=== PATIENT | female | born 1980 | race Caucasian/White ===

== ENCOUNTER 2022-02-10 16:19 | Emergency (ER) | payer MEDICAID ==
[~2022-02-10] VITALS: Ht 161.5 cm; Wt 84.0 kg
[2022-02-10 16:32] VITALS: BP 135/89
--- NOTE | 2022-02-10 16:40 | NUR ---
[employer]: DELTA [id number]
--- NOTE | 2022-02-10 16:43 | NUR ---
PT AMB TO BED 6
[2022-02-10 17:01] LABS: BASOPHILS # (AUTO) 0.1 K/uL (0.00-0.22); EOSINOPHILS # (AUTO) 0.1 K/uL (0-0.4); HEMATOCRIT 39.5 % (36-48); HEMOGLOBIN 12.7 g/dL (12.0-16.0); LYMPHOCYTES # (AUTO) 2.2 K/uL (2.5-16.5); LYMPHOCYTES % (AUTO) 30.4 % (20.5-51.1); MEAN CORPUSCULAR HEMOGLOBIN 26 pg (27-31); MEAN CORPUSCULAR HGB CONC 32 g/dL (33-37); MEAN CORPUSCULAR VOLUME 79.9 fL (80-94); MONOCYTES # (AUTO) 0.6 K/uL (0.8-1.0); MONOCYTES % (AUTO) 7.7 % (1.7-9.3); NEUTROPHILS # (AUTO) 4.3 K/uL (1.8-7.7); NEUTROPHILS % (AUTO) 59.9 % (42.2-75.2); PLATELET COUNT (AUTO) 255 K/uL (140-450); RED BLOOD CELL COUNT(AUTO) 4.94 MIL/uL (4.20-5.40); RED CELL DISTRIBUTION WIDTH 15.3 % (11.6-13.7); WHITE BLOOD COUNT (AUTO) 7.3 K/uL (4.8-10.8)
--- NOTE | 2022-02-10 17:10 | NUR ---
41YO FEMALE PT C/O INTTERMITTENT DULL CHEST PAIN X2 WEEKS. PT STATES PAIN WHEN ANXIOUS. STATES ON GOING SYMPTOMS [id number]. EXPRESSED RECENT INCREASE DUE TO SICK FAMILY MEMBERS. DENIES N/V/D, FEVER , CHILLS OR SOB. PT AAOX4, SPEAKING IN CLEAR FULL SENTENCES. RESPIRATIONS EVEN AND UNLABORED HX:DENIES NKA
--- NOTE | 2022-02-10 17:15 | NUR ---
XRAY AT BEDSIDE
[2022-02-10] MEDS ORDERED: LORazepam 1 MG TAB PO ONE (17:20)
[2022-02-10 17:21] LABS: ALBUMIN 3.9 g/dL (3.4-5.0); CARBON DIOXIDE 28.3 mmol/L (21-32); CREATININE 0.8 mg/dL (0.6-1.3); POTASSIUM 3.3 mmol/L (3.5-5.1); TOTAL BILIRUBIN 0.4 mg/dL (0.0-1.0)
[2022-02-10 18:50] VITALS: BP 111/68
[2022-02-10] MEDS ORDERED: ATA25 PO (19:10)
--- NOTE | 2022-02-10 19:20 | NUR ---
Patient discharged with v/s stable. Written and verbal after care instructions FOR PANIC ATTACK given and explained. Patient alert, oriented and verbalized understanding of instructions. Ambulatory with steady gait. All questions addressed prior to discharge. ID band removed. Patient advised to follow up with PMD. Rx of ATARAX HCL given. Opportunity to ask questions provided and answered.
== END 2022-02-10 19:20 | disposition home or self-care (01) ==
LOC: MED 16:19
DX: F41.9 Anxiety disorder, unspecified (principal); R07.89 Other chest pain; Z79.899 Other long term (current) drug therapy
CPT/HCPCS: 36415; 71045; 80053; 81002; 81025; 84484; 85025; 93005; 99285; Q0092

== ENCOUNTER 2022-04-09 09:01 | Emergency (ER) | payer MEDICAID ==
[~2022-04-09] VITALS: Ht 154.9 cm; Wt 81.6 kg
[~2022-04-09 09:01] MED LIST: ATA25 PO
[2022-04-09 09:12] VITALS: BP 129/79
--- NOTE | 2022-04-09 09:50 | NUR ---
PATIENT AMBULATED TO BED 7.
--- NOTE | 2022-04-09 09:58 | NUR ---
Patient being evaluated by physician at bedside.
[2022-04-09 10:19] LABS: BASOPHILS % (AUTO) 0.7 % (0.0-2.0); EOSINOPHILS % (AUTO) 0.7 % (0.0-4.0); HEMATOCRIT 35.5 % (36-48); HEMOGLOBIN 11.7 g/dL (12.0-16.0); LYMPHOCYTES # (AUTO) 1.2 K/uL (2.5-16.5); LYMPHOCYTES % (AUTO) 19.9 % (20.5-51.1); MEAN CORPUSCULAR HEMOGLOBIN 25 pg (27-31); MEAN CORPUSCULAR HGB CONC 33 g/dL (33-37); MEAN CORPUSCULAR VOLUME 76.4 fL (80-94); MONOCYTES # (AUTO) 0.4 K/uL (0.8-1.0); MONOCYTES % (AUTO) 6.4 % (1.7-9.3); NEUTROPHILS # (AUTO) 4.3 K/uL (1.8-7.7); NEUTROPHILS % (AUTO) 72.3 % (42.2-75.2); PLATELET COUNT (AUTO) 222 K/uL (140-450); RED BLOOD CELL COUNT(AUTO) 4.64 MIL/uL (4.20-5.40)
[2022-04-09 10:39] LABS: APPEARANCE,URINE CLEAR (CLEAR); BILIRUBIN,URINE NEGATIVE (NEGATIVE); BLOOD, URINE NEGATIVE (NEGATIVE); COLOR,URINE YELLOW (YELLOW); LEUKOCYTE ESTERASE ,URINE NEGATIVE (NEGATIVE); NITRITE, URINE NEGATIVE (NEGATIVE); UGLUCOSE NEGATIVE (NEGATIVE)
[2022-04-09 10:47] LABS: ALBUMIN 4.1 g/dL (3.4-5.0); CARBON DIOXIDE 24.4 mmol/L (21-32); CREATININE 0.7 mg/dL (0.6-1.3); POTASSIUM 3.4 mmol/L (3.5-5.1); TOTAL BILIRUBIN 0.4 mg/dL (0.0-1.0)
[2022-04-09 13:08] VITALS: BP 123/97
--- NOTE | 2022-04-09 13:09 | NUR ---
Patient discharged with v/s stable. Written and verbal after care instructions ABOUT ABD PAIN given and explained. Patient verbalized understanding. Ambulatory with steady gait. All questions addressed prior to discharge. Advised to follow up with PMD.
== END 2022-04-09 13:07 | disposition home or self-care (01) ==
LOC: MED 09:01
DX: R10.33 Periumbilical pain (principal); R10.13 Epigastric pain; R93.5 Abnormal findings on diagnostic imaging of other abdominal regions, including retroperitoneum
CPT/HCPCS: 36415; 80053; 81003; 81025; 83690; 85025; 99284